=== PATIENT | female | born 1965 | race Caucasian/White ===

== ENCOUNTER 2020-09-28 04:37 | Inpatient (IN) | payer OTHER ==
[~2020-09-28] VITALS: Ht 157.5 cm; Wt 110.5 kg
[~2020-09-28 04:37] MED LIST: GLIM2; HYDACE5 PO; METF850 PO; METO50 PO; Norco 10-325 T1 EACH PO; Norco 5-325 Ta1 EACH PO; OMEP20ER PO; Prinivil10 MG PO; RXHYDACE PO; Robaxin-750750 MG PO
[2020-09-28] MEDS ORDERED: PIOGLITAZONE HC15 MG PO (04:54)
[2020-09-28] MEDS ORDERED: Simvastatin20 MG PO (04:54)
[2020-09-28] MEDS ORDERED: NEURONTIN300 MG PO (04:55)
[2020-09-28 05:12] LABS: Hematocrit 39.7 % (33.0-51.0); Hemoglobin 13.8 g/dL (11.5-16.0); Mean Corpuscular HGB 29.6 pg (26.0-34.0); Mean Corpuscular HGB Conc 34.8 g/dL (31.5-36.5); Mean Corpuscular Volume 85 fL (80-100); Mean Platelet Volume 11.8 fL (9.1-12.4); Platelet Count 149 K/mm3 (150-400); RDW Coefficient Variation 12.2 % (11.7-14.2); Red Blood Cell Count 4.66 M/mm3 (3.80-5.20); White Blood Cell Count 4.75 K/mm3 (4.00-11.30)
[2020-09-28 05:22] LABS: Albumin, Blood 2.6 g/dL (3.4-5.0); Albumin/Globulin Ratio 0.7 (0.8-1.8); Bilirubin, Total 0.7 mg/dL (0.1-1.0); Bun/Creatinine Ratio 17.7 (12.0-20.0); Calcium, Blood 7.9 mg/dL (8.5-10.1); Creatinine, Blood 1.13 mg/dL (0.40-1.00); Globulin, Blood 3.7 g/dL (2.2-4.0); Potassium, Blood 3.3 mmol/L (3.5-5.5); Total Protein, Blood 6.3 g/dL (6.4-8.2)
[2020-09-28 05:57] LABS: BAND PERCENT MAN 2 % (0-8); BASOPHILS PERCENT MAN 0 % (0-2); EOSINOPHILS PERCENT MAN 0 % (0-6); LYMPHOCYTES ABSOLUTE MAN 0.57 K/mm3 (0.84-5.20); LYMPHOCYTES PERCENT MAN 12 % (21-46); MONOCYTES ABSOLUTE MAN 0.19 K/mm3 (0.16-1.47); MONOCYTES PERCENT MAN 4 % (4-13); MYELOCYTE ABSOLUTE MAN 0.04 K/mm3 (0.00-0.00); MYELOCYTE PERCENT MAN 1 % (0-0); NEUTROPHILS ABSOLUTE MAN 3.94 K/mm3 (1.96-9.15); SEG NEUTROPHILS PERCENT MAN 81 % (41-73); TOTAL CELLS COUNTED 100
--- NOTE | 2020-09-28 17:47 | NUR ---
PT QUITE PLEASANT TODAY. STATES FEELS A LITTLE BETTER - BUT NOT MUCH. CONTINUE ON 4L O2. CONTINUES TO HAVE CARCKLES IN S[place] BASES. CONTINUES TO HAVE DIARRHEA THAT PT [facility] HAS HAD FOR SOME TIME AT HOME. NEW IV PLACED TODAY. NO NEW CONCERNS NOTED. BED IN LOW POSITION, CALLLITE IN REACH, CALLS APROP
--- NOTE | 2020-09-29 04:24 | NUR ---
PATIENT IS ALERT AND ORIENTED. PLEASANT AND COOPERATIVE WITH STAFF. VITALS STABLE AND WNL. ON 4L O2 NC; CAN LIKELY WEAN O2 DOWN O2 SATS HAVE BEEN IN THE MID TO HIGH 90s. INDEPENDENT IN ROOM. SLEEPING/RESTING THE MAJORITY OF THE SHIFT WITH MINIMAL TO NO APPETITE. PATIENT CALLS APPROPRIATELY FOR STAFF ASSIST NEEDED.
[2020-09-29 06:18] LABS: Bun/Creatinine Ratio 27.6 (12.0-20.0); Calcium, Blood 8.1 mg/dL (8.5-10.1); Creatinine, Blood 1.16 mg/dL (0.40-1.00); Potassium, Blood 4.3 mmol/L (3.5-5.5)
--- NOTE | 2020-09-29 17:42 | NUR ---
SHIFT SUMMARY PATIENT MEDICATED X1 FOR PAIN AND COUGH. DENIES NAUSEA AND SHORTNESS OF BREATH. MAINTAINING OXYGEN SATURATION ABOVE 92% ON 4L/NC. GIVEN 1 LITER BOLUS THIS AM FOR BP 87/56. BP 110/60 AFTER BOLUS. PATIENT UP SBA TO BSC. EATING AND DRINKING WELL. PLEASANT AND COOPERATIVE WITH CARE.
--- NOTE | 2020-09-30 06:01 | NUR ---
DATA MODELER SUMMARY HAS BEEN RESTING QUIETLY WITH EFW INTERRUPTIONS THIS SHIFT SINCE HS, O2 PER NC AT 4-5L/MIN. MED TELE SINUS RHYTHM AT 98 AND SOME COUGHING. ACCIDENTLY PULLED IV OUT EARLIER WHILE TURNING IN BED. CURRENTLY ATTEMPTING TO PLACE ANOTHER. ISOLATOIN PRECAUTIONS MAINTAINED. CALL LIGHT IN REACH
[2020-09-30 06:54] LABS: Albumin, Blood 2.2 g/dL (3.4-5.0); Anion Gap 4 mmol/L (6-16); Blood Urea Nitrogen 32 mg/dL (8-24); Bun/Creatinine Ratio 31.4 (12.0-20.0); CO2, Blood 26 mmol/L (21-32); Calcium, Blood 7.7 mg/dL (8.5-10.1); Chloride, Blood 103 mmol/L (98-108); Creatinine, Blood 1.02 mg/dL (0.40-1.00); Glomerular Filtration Rate 57 (60-); Glucose, Blood 325 mg/dL (70-99); Phosphorus, Blood 3.3 mg/dL (2.5-4.9); Potassium, Blood 5.7 mmol/L (3.5-5.5); Sodium, Blood 133 mmol/L (136-145)
--- NOTE | 2020-09-30 17:11 | NUR ---
PT AOX4 AND COOOPERATIVE OF CARE. PT CONTINUES TO BE ON 4L O2 AND IS MAINTAINING WELL AT THIS TIME. PT IS INDEPENDENT TO BEDSIDE COMMODE AND CAN CALL APPROPROPRIATELY. PT REPORTED BACK PAIN AND NAUSEA AND WAS TREATED PER EMAR. NO DISTRESS NOTED AT THIS TIME WILL CONTINUE TO MONITOR.
[2020-10-01 06:02] LABS: Albumin, Blood 2.2 g/dL (3.4-5.0); Anion Gap 5 mmol/L (6-16); Blood Urea Nitrogen 26 mg/dL (8-24); Bun/Creatinine Ratio 28.4 (12.0-20.0); CO2, Blood 26 mmol/L (21-32); Calcium, Blood 8.2 mg/dL (8.5-10.1); Chloride, Blood 107 mmol/L (98-108); Creatinine, Blood 0.92 mg/dL (0.40-1.00); Glomerular Filtration Rate >60 (60-); Glucose, Blood 146 mg/dL (70-99); Phosphorus, Blood 2.8 mg/dL (2.5-4.9); Potassium, Blood 3.9 mmol/L (3.5-5.5); Sodium, Blood 138 mmol/L (136-145)
--- NOTE | 2020-10-01 06:05 | NUR ---
DITCH REPAIRER SUMMARY INTERMITENT RESTLESSNESS AT , DEMANDED TO BE ABLE TO "TAKE A SHOWER" AND WOULD NOT WAIT UNTIL AM TO DO SO. ASSISTED TO BATHROOM WITH EXTENSION OF O2 TUBING. AFTER SHOWER, MORE RECEPTIVE TO TREATMENT. HAS BEEN RESTING QUIETLY WITH FEW INTERRUPTIONS SINCE. CALL LIGHT IN REACH. MED [employer] SINUS IN
--- NOTE | 2020-10-01 15:15 | NUR ---
PT WAS CHANGED TO NASAL CANNULA OXIMIZER PULSE OX WAS TRENDING AT 85%. AFTER CHANGING THE PATIENT, PULSE OX IS 93%
--- NOTE | 2020-10-01 18:02 | NUR ---
Listened to patient's lungs and auscultated crackles in the right lower lobes. the patient stated that she is breathing easer since she was switched to the oxymizer. She was also educated about proning and she stated that she has trouble maintaining that position. I told her that we could set a goal to try to prone tomorrow. Additionally, the patient did not feel like eating her meal and she was given and ensure.
--- NOTE | 2020-10-01 18:47 | NUR ---
Shift Summary, The patient is A/OX4 to person, place, time and event. The patient has been cooperative and pleasent to work with. The patient has SOB and pulse ox around 85% trending, she was changes to a nasal oxymizer 7lpm and she states that it has helped and her pulse ox increased to 93%. The patient has been coughing and complained of back pain. She was given robitussin and tylenal per EMR and she stated it helped. The patient has been more tired today becuase she stayed up late the night before and took a shower. She was still independent in the room and able to use the BSC. She was educateded about proning and turning from side to side. She is able to turn from [id number] but she stated she was unable to prone. We set a goal tomorrow to prone for short amounts of time. The patient did not want to eat her dinner becuase she said it was to much. She was offered an ensure and she was able to drink it. She is currently resting in bed watching TV.
[2020-10-02 05:39] LABS: Hematocrit 40.8 % (33.0-51.0); Hemoglobin 13.9 g/dL (11.5-16.0); Mean Corpuscular HGB 29.8 pg (26.0-34.0); Mean Corpuscular HGB Conc 34.1 g/dL (31.5-36.5); Mean Corpuscular Volume 88 fL (80-100); Mean Platelet Volume 11.2 fL (9.1-12.4); Platelet Count 199 K/mm3 (150-400); RDW Coefficient Variation 12.4 % (11.7-14.2); RDW Standard Deviation 39.8 fL (35.1-46.3); Red Blood Cell Count 4.66 M/mm3 (3.80-5.20); White Blood Cell Count 5.69 K/mm3 (4.00-11.30)
--- NOTE | 2020-10-02 06:07 | NUR ---
SHIFT SUMMARY- PT. A&O, ON 7L OXYMIZER. BS LAST NIGHT 437. HOSPITALIST NOTIFED, TX'D PER ORDER. REPEAT BS IMPROVED. NO COMPLAINTS OF PAIN OR DISCOMFORT DURING THE NIGHT. SLEPT T/O THE NIGHT, NO APPARENT DISTRESS NOTED. CALL LIGHT WITHIN REACH AND SIDE RAILS UPX2. WILL CONT TO MONITOR.
[2020-10-02 06:18] LABS: Alanine Aminotransfer (ALT/SGP 51 U/L (12-78); Albumin, Blood 2.2 g/dL (3.4-5.0); Albumin/Globulin Ratio 0.6 (0.8-1.8); Alk Phos 96 U/L (50-136); Anion Gap 6 mmol/L (6-16); Aspartate Aminotrans (AST/SGOT 53 U/L (12-37); Bilirubin, Total 0.6 mg/dL (0.1-1.0); Blood Urea Nitrogen 22 mg/dL (8-24); Bun/Creatinine Ratio 25.9 (12.0-20.0); CO2, Blood 27 mmol/L (21-32); Calcium, Blood 8.7 mg/dL (8.5-10.1); Chloride, Blood 107 mmol/L (98-108); Creatinine, Blood 0.85 mg/dL (0.40-1.00); Globulin, Blood 3.7 g/dL (2.2-4.0); Glomerular Filtration Rate >60 (60-); Glucose, Blood 141 mg/dL (70-99); Magnesium, Blood 1.9 mg/dL (1.6-2.4); Sodium, Blood 140 mmol/L (136-145); Thyroid Stimulating Hormone 0.623 uIU/mL (0.360-4.800); Total Protein, Blood 5.9 g/dL (6.4-8.2)
--- NOTE | 2020-10-02 17:56 | NUR ---
Shift Summary, The patient is A/OX4 to person place, time and event. The patient is cooperative and appropriat. she has SOB and her oxygen delivery devices have been changed multiple times throughout the day. This am her pulse ox was averaging 85% and she was on oxymizer 7LPM, the o2 was increased to 15lpm on nasal oxymizer, she remained around 93% until noon when her pulse ox dropped and maintained at 85%, I consulted RT and they were able to put her on an Airvo 50 and 75% the patient's saturation increased to >90% and she sustained for about 1.5hrs before returning to 85% the Airvo was increased to 50/90% and the patient's pulse ox increased to 90% for about 30 minutes before returing <90%. During this time the patient was proned on her belly and on her left and right side. She did not eat lunch and was given an ensure. the patient is eating. Patient is being transfered to PCU.
[2020-10-02 20:32] LABS: Source, Urine Catheter
[2020-10-02 20:36] LABS: Bilirubin, Urine Neg (Neg); Blood, Urine Neg (Neg); Color, Urine Yellow (P-Yellow); Glucose Qualitative, Urine 4+ (Neg); Ketones, Urine Neg (Neg); Leukocyte Esterase, Urine Neg (Neg); Nitrite, Urine Neg (Neg); Protein, Urine 1+ (Neg); Urobilinogen, Urine 2+ (Normal)
[2020-10-02 20:43] LABS: Appearance, Urine Clear (Clear)
--- NOTE | 2020-10-03 06:46 | NUR ---
SHIFT SUMMARY PT RESTED WELL THROUGH NIGHT. ALERT AND ORIENTED, ABLE TO MAKE NEEDS KNOWN. COOPERATIVE WITH CARE. SATS >90% ON BIPAP. 27/11 100% FIO2. TELE NSR. PAIN X1. NO SKIN ISSUES. MEDINA IN PLACE, DRAINING TO GRAVITY, LAMAR CARE PERFORMED. NO BM. CALL LIGHT WTIHIN REACH, BED IN LOWEST POSITION. WILL CONTINUE TO MONITOR.
--- NOTE | 2020-10-03 08:50 | NUR ---
UNABLE TO FLUSH IV TO LAC. SHELLEY BLUM TO PLACE POWERGLIDE IV ACCESS.
--- NOTE | 2020-10-03 13:57 | NUR ---
PT ABLE TO LAY ON RIGHT SIDE X 2 HOURS WITH AIRVO 60l @ 100%. PT SAT UP IN CHAIR POSITION, SP02 DROPPED TO LOW 80s. PT ABLE TO DRINK AN ENSURE AND EAT A CUP OF PEACHES, PLACED ON BIPAP 60L @ 100% FOR REST BREAK FOR THE AFTERNOON. ENCOURAGING TURNING AND REPOSITIONING Q 2 HRS. CALL LIGHT IN REACH. WILL CONTINUE TO MONITOR. SP02 ON BIPAP >90%.
--- NOTE | 2020-10-03 18:39 | NUR ---
PT TOLERATED AIRVO WELL FOR APROX 6 HRS TODAY, THEN WAS PLACED BACK ON BIPAP AFTER EATING LUNCH THIS AFTERNOON. PT COOPERATIVE WITH TURNING AND CHANGING POSITIONS Q2 HRS. ATTEMPTED TO CONTACT PT'S DTR FOR AN UPDATE, UNABLE TO REACH HER.
--- NOTE | 2020-10-03 20:00 | NUR ---
ASSUMED CARE OF PT AT 1915. REPORT RECEIVED. PT PRESENTS IN BED. ALERT AND ORIENTED. PLEASANT AND COOPERATIVE WITH CARE AND ASSESSMENT. CONTINUES ON BIPAP WHEREAS SHE IS MAINTAINING SATURATIONS > 90 PERCENT. PT DENIES COMPLAINTS OTHER THAN SOME TENDERNESS TO NOSE FROM BIPAP MASK. WILL PROVIDE GEL PADDING FOR COMFORT. WILL REVIEW CHART AND PLAN OF CARE FOR THIS PT.
--- NOTE | 2020-10-04 03:07 | NUR ---
PT CONTINUES ON BIPAP WITH GOOD RESULTS. HAS REMAINED ON 100 PERCENT FIO2. MAINTAINS >90 PERCENT. WITH POSITION CHANGES PT HAS COUGHING EPISODES. PT HAS NO COMPLAINTS OF PAIN OR N/V. WILL CONTINUE TO MONITOR.
[2020-10-04 06:04] LABS: Hematocrit 38.5 % (33.0-51.0); Mean Corpuscular HGB 29.3 pg (26.0-34.0); Mean Corpuscular HGB Conc 33.8 g/dL (31.5-36.5); Mean Corpuscular Volume 87 fL (80-100); Mean Platelet Volume 11.2 fL (9.1-12.4); Platelet Count 285 K/mm3 (150-400); RDW Coefficient Variation 12.3 % (11.7-14.2); RDW Standard Deviation 39.5 fL (35.1-46.3); Red Blood Cell Count 4.43 M/mm3 (3.80-5.20)
[2020-10-04 06:29] LABS: Albumin/Globulin Ratio 0.5 (0.8-1.8); Bilirubin, Total 0.6 mg/dL (0.1-1.0); Bun/Creatinine Ratio 29.3 (12.0-20.0); C-REACTIVE PROTEIN, EXT RANGE 14.5 mg/dL (0.000-0.300); Calcium, Blood 8.8 mg/dL (8.5-10.1); Creatinine, Blood 0.99 mg/dL (0.40-1.00); Globulin, Blood 4.2 g/dL (2.2-4.0); Potassium, Blood 3.9 mmol/L (3.5-5.5); Total Protein, Blood 6.2 g/dL (6.4-8.2)
--- NOTE | 2020-10-04 08:00 | NUR ---
Receive report from Ramy BLUM.ateint resting sitting up in bed. She is on high flow O2 60 100% and sats low 90%'s. She has 20ga Powerglide SL and flushed. She has 16Fr Cortez draining to gravity light tio colored urine. She is slightly hypotensive systolics in the 90's. SCD's in place. She is alert and oriented and is able to communicate his nees. SCD's in place.
--- NOTE | 2020-10-04 10:00 | NUR ---
Patient has poor apitite and stated that food is too heavy for her stomach and prefers Ensures and jello. VSS , See EMR. Tolerated PO med with sips of water. Remains 0n 60L 100% with sats in the high 80- low 90's.
--- NOTE | 2020-10-04 12:00 | NUR ---
Her sats in the high 80's and had some concerns and talked with Dr Mayer and am consulting Dr Scanlon. Remains 60L 100% sats high 80's.CBG's increased and gave semglee.
--- NOTE | 2020-10-04 15:00 | NUR ---
No significant changes with patient.
--- NOTE | 2020-10-04 17:30 | NUR ---
She has been try to more active to prone or lay on her side and sats low 90%'s. Continues to tolerate PO meds. She remaisn on high Flow 60L 100% and sats 94%. Updated family.
--- NOTE | 2020-10-04 20:00 | NUR ---
ASSUMED CARE OF PT AT 1915. REPORT RECEIVED. PT PRESENTS IN BED. BIPAP IN PLACE. PT COMPLIANT WITH WEARING MASK. DISCUSSED WITH PT HER CURRENT ILLNESS OF COVID. DISCUSSED ADVANTAGE OF PRONING. PT AGREES TO PLAN OF PRONING THIS LATER EVENING. WILL REVIEW CHART AND PLAN OF CARE FOR THIS PT.
--- NOTE | 2020-10-04 22:11 | NUR ---
PT'S DAUGHTER CALLS THIS EVENING FOR PT UPDATE. THIS DONE. DISCUSSED PRONING OF PATIENT FOR NIGHT.
[2020-10-05 06:14] LABS: Hematocrit 41.3 % (33.0-51.0); Hemoglobin 14.3 g/dL (11.5-16.0); Mean Corpuscular HGB 29.5 pg (26.0-34.0); Mean Corpuscular HGB Conc 34.6 g/dL (31.5-36.5); Mean Corpuscular Volume 85 fL (80-100); Mean Platelet Volume 10.8 fL (9.1-12.4); Platelet Count 348 K/mm3 (150-400); RDW Coefficient Variation 12.1 % (11.7-14.2); RDW Standard Deviation 37.6 fL (35.1-46.3); Red Blood Cell Count 4.85 M/mm3 (3.80-5.20); White Blood Cell Count 5.33 K/mm3 (4.00-11.30)
--- NOTE | 2020-10-05 06:30 | NUR ---
PT HAS MAINTAINED ON BIPAP THROUGHOUT THE NIGHT. HAS MOVED HERSELF INTO PARTIAL PRONE POSITION. HAVE DECREASED FIO2 TO 95 PERCENT FROM 100. PT NOW AT 87 PERCENT SATURATIONS. WILL NEED TO INCREASE BACK TO 100 PERCENT FIO2. PT HAS DENIED COMPLAINTS THROUGH THE NIGHT. HAS BEEN ABLE TO REST SOME. WILL CONTINUE TO MONTIOR PT, AND WILL REPORT OFF TO ONCOMING RN.
[2020-10-05 07:02] LABS: Alanine Aminotransfer (ALT/SGP 43 U/L (12-78); Albumin, Blood 2.1 g/dL (3.4-5.0); Albumin/Globulin Ratio 0.5 (0.8-1.8); Alk Phos 101 U/L (50-136); Anion Gap 5 mmol/L (6-16); Aspartate Aminotrans (AST/SGOT 42 U/L (12-37); Bilirubin, Total 0.6 mg/dL (0.1-1.0); Blood Urea Nitrogen 21 mg/dL (8-24); Bun/Creatinine Ratio 26.6 (12.0-20.0); CO2, Blood 32 mmol/L (21-32); Calcium, Blood 8.8 mg/dL (8.5-10.1); Chloride, Blood 100 mmol/L (98-108); Creatinine, Blood 0.79 mg/dL (0.40-1.00); Globulin, Blood 4.6 g/dL (2.2-4.0); Glomerular Filtration Rate >60 (60-); Glucose, Blood 117 mg/dL (70-99); Potassium, Blood 4.3 mmol/L (3.5-5.5); Sodium, Blood 137 mmol/L (136-145); Total Protein, Blood 6.7 g/dL (6.4-8.2)
--- NOTE | 2020-10-05 08:00 | NUR ---
SBAR FROM DENISSE RN FOR TEAM ASSIST. PT RESTING IN ROOM, MINIMAL/NO AIRLEAK W/ BIPAP. PT STATES TOLERATING BIPAP. PT STATES SHE FEELS SAME YESTERDAY. NO DISTRESS NOTED. PLANS ON DRINKING ENSURE FOR BREAKFAST. VSS, AFEBRILE. BIPAP SETTINGS 60L 95FIO2 W/ SATS 95%. EMERGENCY EQUIPMENT AT BEDSIDE AND FUNCTIONAL. BED IN LOW/LOCKED POSITION, CALL LIGHT IN REACH. WATER PROVIDED FOR PT.
--- NOTE | 2020-10-05 10:48 | NUR ---
O2 SATS 85% ON BIPAP 27/11 95%. INCREASED FI02 TO 100. O2 SATS NOW 87%. GOAL OF 86-87% PER MD.
--- NOTE | 2020-10-05 11:58 | NUR ---
PT REQUESTED TO EAT LUNCH USING HIGH FLOW. TRANSITIONED PT TO HIGH FLOW. SITTING UP W/ LUNCH, PT STATES TOLERATING FAIRLY. SPO2 80-85% DURING MEAL.
--- NOTE | 2020-10-05 14:00 | NUR ---
Patient rested for several hours on BIPAP and the bacl to high flow 60L 100% while awake trying to eat, and continues currently, sats 88-92. She trys to do some shifting in bed for repositioning not to desats. Dr Faulkner by and evaluated patient.
--- NOTE | 2020-10-05 17:30 | NUR ---
Patient is awake on high flow 60l 100% and awaiting dinner to go back on BIPAP. Tolerasting well and stated feeling better than yesterday. VSS, See EMR. Continues to tolerate PO meds with drinks of water.
--- NOTE | 2020-10-05 20:00 | NUR ---
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 PT EATING SNACK, UNDERSTANDS IMPORTANCE OF PRONING. CO HEADACHE, WILL GIVE PRN PAIN MED. CAROL DOUGLAS VERONICA URINE.
--- NOTE | 2020-10-06 01:00 | NUR ---
AWAKENED FOR ASSESS & GABAPENTIN WHICH WAS DOSED LATE. STATES THAT NORCO NOT REALLY EFFECTIVE FOR HEADACHE. 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 CHANGED TO BIPAP W GEL PAD FOR NOSE.
--- NOTE | 2020-10-06 04:00 | NUR ---
RT CHANGED BIPAP TO / 100%, CONT ALERT, PT HAS BEEN POSITIONING HIGH ON SIDE. CONT TO MONITOR CLOSELY. CALL LIGHT IN REACH. PT SL EMOTIONAL UNDERSTANDING POSSIBILITY OF INTUBATION.
[2020-10-06 05:00] LABS: Hematocrit 40.9 % (33.0-51.0); Mean Corpuscular HGB 29.8 pg (26.0-34.0); Mean Corpuscular HGB Conc 34.2 g/dL (31.5-36.5); Mean Corpuscular Volume 87 fL (80-100); Mean Platelet Volume 10.4 fL (9.1-12.4); Platelet Count 357 K/mm3 (150-400); RDW Coefficient Variation 12.1 % (11.7-14.2); White Blood Cell Count 6.44 K/mm3 (4.00-11.30)
[2020-10-06 05:24] LABS: Alanine Aminotransfer (ALT/SGP 46 U/L (12-78); Albumin/Globulin Ratio 0.5 (0.8-1.8); Alk Phos 116 U/L (50-136); Anion Gap 5 mmol/L (6-16); Aspartate Aminotrans (AST/SGOT 58 U/L (12-37); Bilirubin, Total 0.7 mg/dL (0.1-1.0); Blood Urea Nitrogen 22 mg/dL (8-24); Bun/Creatinine Ratio 23.4 (12.0-20.0); CO2, Blood 33 mmol/L (21-32); Calcium, Blood 8.9 mg/dL (8.5-10.1); Chloride, Blood 97 mmol/L (98-108); Creatinine, Blood 0.94 mg/dL (0.40-1.00); Globulin, Blood 4.4 g/dL (2.2-4.0); Glomerular Filtration Rate >60 (60-); Glucose, Blood 107 mg/dL (70-99); Potassium, Blood 4.5 mmol/L (3.5-5.5); Sodium, Blood 135 mmol/L (136-145); Total Protein, Blood 6.4 g/dL (6.4-8.2)
--- NOTE | 2020-10-06 10:24 | NUR ---
PATIENT TRANSFER PATIENT ALERT AND ORIENTATED X4. PATIENT IS ON BIPAP 16/ 100%. PATIENT CAP BLOOD GLUCOSE WAS 61 THIS MORNING. PATIENT TAKEN OFF BIPAP AND ON HIGH FLOW AT 60L 100%, TO HAVE SOME ORANGE JUICE TO INCREASE BLOOD SUGAR. PATIENT WAS NOT TOLERATING THE HIGH FLOW, O2 SATS DROPPED LOW 65. PATIENT REPOSITIONED TO PRONE POSITION AND PLACED BACK ON BIPAP AT 60L 100% AND PATIENT SITTING AT SPO2 83%. PATIENT PER MD ORDER RECEIVED HALF AN AMP OF DEXTROSE. PATIENT BLOOD GLUCOSE 121. PATIENT CONTINUED TO SIT AROUND SPO2 85%. PATIENT TRANSFERED TO ICU PER INTENSITIVES. PATIENT TRANSFERD BY BED WITH THIS RN, LICENSING REPRESENTATIVE, AND RT. PATIENT TRANSFERED TO ICU AND PREPERATION FOR INTUBATION. THIS RN NOTIFED SPOUSE WITH AN UPDATE ON PATIENT CONDITION AND ROOM CHANGE.
--- NOTE | 2020-10-06 12:27 | NUR ---
PT TRANSFERED FROM PCU TO ICU AT 1000. PT AWAKE ON BIPAP, SATS LOW 80'S. RT, SEVERAL RN'S AND DR HYLTON AT BEDSIDE. INTUBATION PLANNED. NS 1L BOLUS STARTED PRIOR TO INTUBATION FOR HYPOTENSION. LEVOPHED ORDERED, STARTED AT AT 5MCG AT 1017 AND QUICKLY PLACED ON STANDBY POST INTUBATION, PT WAS HYPERTENSIVE FOR A SHORT PERIOD AFTER INTUBATION PT WAS NOT FULLY SEDATED. PT INTUBATED AT 1017, 7.5 TUBE, 23 AT GUMS. PT REQUIRED TO BE PARALYZED AFTER INTUBATION. SUCCS GIVEN X [address] HYLTON. NIMBEX AT 2MCG STARTED AT 1032. PROPOFOL PLACED ON STANDBY FOR A SHORT PERIOD AFTER INTUBATION PROPOFOL AND NIMBEX ARE NOT COMPATIBLE AND PT HAD ONLY ONE LINE. DR HYLTON PLACED A CL TO PT'S R IJ, ETT AND CL CONFIRMED VIA CHEST XRAY. PROPOFOL THEN STARTED AT 50MCG. BIS READING 50'S. TOF 4/4 AT 10MV. PT IS SIGNIFICANTLY PARALYZED, BREATHING W VENT. PT PRONED AFTER CHEST XRAY PER DR HYLTON. DR HYLTON AT BEDSIDE POST INTUBATION SATS INITIALLY WERE SLOW TO RAISE FROM 79% TO 89%. VENT SETTINGS VC 22/380/18/100%. RECTAL TUBE PLACED FOR LIQUID STOOL. OG PLACED TO LIS PT HAD SMALL AMT OF BROWN EMESIS POST INTUBATION. LEVOPHED RESTARTED AT 5MCG WHEN PT WAS ADEQUATELY SEDATED AND IS NOW AT 3MCG. NS IS NOW RUNNING AT 100CC/HR. DR HYLTON CALLED PT'S AND UPDATED HIM. ATIVAN AND FENT GIVEN TO PT WHILE PROPOFOL WAS ON STANDY PER DR HYLTON, A TOTAL OF ATIVAN 4MG AND FENT 100MCG.
[2020-10-06 12:42] LABS: PCO2 Arterial 49.8 mmHg (35-45); PO2 Arterial 51.9 mmHg (80-100); pH Blood Arterial 7.39 (7.35-7.45)
--- NOTE | 2020-10-06 13:02 | NUR ---
PT HAS HAD C/O NAUSEA, NO EMESIS TODAY. ZOFRAN, PHERGAN, AND REGLAN GIVEN. NG ORDERED TO BE PLACED TO LIS BUT PT HAS AIRVO IN. THIS DISCUSSED W DR JAIN. WILL HOLD NG FOR NOW AND MONITOR. PT HAS ERYTHEMA AND WARMTH TO BLE, DOPPLER ORDERED.
--- NOTE | 2020-10-06 14:04 | NUR ---
FENTANYL 50MCG GIVEN FOR BIS HIGH 50'S. BP STABLE, LEVOPHED DECREASED TO 2MCG. VHP TUBE FEEDING STARTED AT 25CC/HR; GOAL RATE. PROPOFOL AT 50MCG, NIMBEX AT 2MCG. PT ADEQUATELY PARALYZED, SATS 92%. TOF 0/4.
--- NOTE | 2020-10-06 16:46 | NUR ---
BS 306, TREATED W 12UNITS HUMALOG. BIS 70'S AFTER REPOSITIONING PT'S HEAD AND ARMS, PT REMAINS PRONE. PROPOFOL INCREASED TO 60MCG, FENT 50MCG GIVEN. TOF 0/4. SATS 95% PT MILDLY HTN AFTER TURN, LEVOPHED PLACED ON STANDBY THEN RESTRATED AFTER PROPOFOL INCREASED AND FENT GIVEN
--- NOTE | 2020-10-06 18:56 | NUR ---
DR HYLTON IN TO SEE PT. RATE CHANGED TO 24, TV 300. SATS 98%. NO OTHER CHANGES. PT TO REMAINED PRONE T/O THE NIGHT PER DR HYLTON
[2020-10-07 03:58] LABS: BASOPHILS ABSOLUTE AUTO 0.05 K/mm3 (0.00-0.23); BASOPHILS PERCENT AUTO 1 % (0-2); EOSINOPHILS ABSOLUTE AUTO 0.12 K/mm3 (0.00-0.68); EOSINOPHILS PERCENT AUTO 1 % (0-6); Hematocrit 37.4 % (33.0-51.0); Hemoglobin 12.7 g/dL (11.5-16.0); IMMATURE GRAN ABSOLUTE AUTO 0.36 K/mm3 (0.00-0.10); IMMATURE GRAN PERCENT AUTO 4 % (0-1); LYMPHOCYTES ABSOLUTE AUTO 0.49 K/mm3 (0.84-5.20); LYMPHOCYTES PERCENT AUTO 5 % (21-46); MONOCYTES ABSOLUTE AUTO 0.29 K/mm3 (0.16-1.47); MONOCYTES PERCENT AUTO 3 % (4-13); Mean Corpuscular HGB 30.2 pg (26.0-34.0); Mean Corpuscular Volume 89 fL (80-100); Mean Platelet Volume 10.2 fL (9.1-12.4); NEUTROPHILS ABSOLUTE AUTO 9.04 K/mm3 (1.96-9.15); NEUTROPHILS PERCENT AUTO 87 % (41-73); Platelet Count 318 K/mm3 (150-400); RDW Coefficient Variation 12.4 % (11.7-14.2); White Blood Cell Count 10.35 K/mm3 (4.00-11.30)
[2020-10-07 04:06] LABS: Base Excess Venous 5.2 mmol/L; Bicarbonate Venous 27.4 mmol/L (24.0-30.0); PCO2 Venous 60.5 mmHg (38-42); PO2 Venous 65.4 mmHg (38-42); pH Blood Venous 7.32 (7.34-7.37)
[2020-10-07 04:15] LABS: Anion Gap 5 mmol/L (6-16); Blood Urea Nitrogen 35 mg/dL (8-24); Bun/Creatinine Ratio 45.5 (12.0-20.0); CO2, Blood 30 mmol/L (21-32); Calcium, Blood 8.3 mg/dL (8.5-10.1); Chloride, Blood 101 mmol/L (98-108); Creatinine, Blood 0.77 mg/dL (0.40-1.00); Glomerular Filtration Rate >60 (60-); Glucose, Blood 362 mg/dL (70-99); Magnesium, Blood 2.1 mg/dL (1.6-2.4); Phosphorus, Blood 3.7 mg/dL (2.5-4.9); Potassium, Blood 4.5 mmol/L (3.5-5.5); Sodium, Blood 136 mmol/L (136-145)
--- NOTE | 2020-10-07 06:19 | NUR ---
SHIFT SUMMARY PATIENT HAS SLEPT WELL THRU NIGHT. HAS TOLERATED TURNING THRU NIGHT, NO EPISODES OF DESATURATION. MAINTAINED DRIPS THEY WERE, NIMBEX @ 2, PROPOFOL @ 60, N.S. @ 100, WAS ABLE TO TURN OFF LEVOPHED EARLIER IN SHIFT. TUBE FEED RESIDUALS WERE MINIMAL, 0-10. MAINTAINED BIS ~ 50, TRAIN OF 4 = 1/4. ASSESSMENT IS CHARTED. VSS. WILL CONTINUE TO MONITOR.
--- NOTE | 2020-10-07 08:31 | NUR ---
AM NOTE... ASSUMED CARE OF PT AT 0700, PT IS INTUBATED, SEDATED AND PARALYZED ON NIMBEX AT 2MCG, PROPOFOL AT 65MCG WITH VENT SETTINGS AT AC/VC: 24/300/18/80% WITH O2 SATS AT 90-92%. L/S CLEAR IN THE UPPER LOBES COARSE IN THE MID AND DIM IN THE BASES. PT'S BP STABLE, HR IN THE 100'S-120'S SINUS TACH, PT HAS TRACE EDEMA NOTED TO BLE. BT PRESENT AND HYPOACTIVE, PT IS PRONED AT THIS TIME. PT'S MEDINA IS PATENT AND DRAINING TO GRAVITY, A RECTAL TUBE IS PRESENT AND DRAINING BROWN LIQUID STOOLS TO GRAVITY. PT'S TOF IS 1/4 ON A SETTING OF 10. BIS IS 40'S-50'S. AT 0800 THE PT'S O2 SATS STARTED TO DROP FROM THE 90-92% TO 85-87%, RT WAS CALLED AND THE FIO2 WAS INCREASED FROM 80% TO 85%, THIS IMPROVED THE O2 SATS FOR APROX 10 MINS WHEN THEY DROPPED AGAIN BACK DOWN TO 85-87%, THE FIO2 WAS INCREASED AGAIN TO 90% THIS IMPROVED THE PT'S O2 SATS TO 89%. WILL CONTINUE TO MONITOR.
--- NOTE | 2020-10-07 14:29 | NUR ---
Pt. lying in bed,Covid pt.Prayed for her standing by the door of her room .
--- NOTE | 2020-10-07 18:18 | NUR ---
SHIFT SUMMARY... NO ACUTE NEGATIVE CHANGES NOTED THIS SHIFT. PT'S VS HAVE BEEN STABLE, PT'S VENT SETTINGS HAVE IMPROVED THE PT IS CURRENTLY AT AC/VC:24/300/16/90% WITH O2 SATS AT 96%. PT HAS NOT BEEN ON LEVOPHED AT ALL THIS SHIFT. PT CONTINUES TO BE PRONED PER 'S REQUEST AND WILL STAY PRONED UNTIL TOMORROW AM. PT'S MEDINA IS PATENT AND DRAINING DARK YELLOW/GREEN URINE TO GRAVITY. PT'S RECTAL TUBE HAS NOT HAD ANY OUTPUT THIS SHIFT. PT HAD A BLOODY NOSE THIS SHIFT THIS WAS NOTED WHEN THE PT'S HEAD WAS TURNED FROM THE RIGHT TO THE LEFT. THE PT'S FACE WAS CLEANED AND SOME 2x2s WERE PUT BETWEEN THE PT'S NOSE AND THE ET TUBE SECURMENT DEVICE TO HELP PROTECT FROM SKIN BREAKDOWN. PT'S FAMILY WAS CALLED AND UPDATED ON THE PT'S CURRENT CONDITON AND PLAN OF CARE. WILL CONTINUE TO MONITOR UNTIL REPORT IS GIVEN TO ON COMING RN.
[2020-10-08 03:45] LABS: BASOPHILS ABSOLUTE AUTO 0.05 K/mm3 (0.00-0.23); BASOPHILS PERCENT AUTO 1 % (0-2); EOSINOPHILS ABSOLUTE AUTO 0.15 K/mm3 (0.00-0.68); EOSINOPHILS PERCENT AUTO 2 % (0-6); Hematocrit 35.1 % (33.0-51.0); Hemoglobin 11.6 g/dL (11.5-16.0); IMMATURE GRAN ABSOLUTE AUTO 0.51 K/mm3 (0.00-0.10); IMMATURE GRAN PERCENT AUTO 6 % (0-1); LYMPHOCYTES ABSOLUTE AUTO 0.63 K/mm3 (0.84-5.20); LYMPHOCYTES PERCENT AUTO 7 % (21-46); MONOCYTES ABSOLUTE AUTO 0.32 K/mm3 (0.16-1.47); MONOCYTES PERCENT AUTO 4 % (4-13); Mean Corpuscular HGB 30.3 pg (26.0-34.0); Mean Corpuscular Volume 92 fL (80-100); Mean Platelet Volume 10.2 fL (9.1-12.4); NEUTROPHILS ABSOLUTE AUTO 7.34 K/mm3 (1.96-9.15); NEUTROPHILS PERCENT AUTO 81 % (41-73); Platelet Count 288 K/mm3 (150-400); RDW Coefficient Variation 12.5 % (11.7-14.2); Red Blood Cell Count 3.83 M/mm3 (3.80-5.20)
[2020-10-08 04:01] LABS: Anion Gap 1 mmol/L (6-16); Blood Urea Nitrogen 29 mg/dL (8-24); Bun/Creatinine Ratio 41.6 (12.0-20.0); CO2, Blood 33 mmol/L (21-32); Calcium, Blood 7.7 mg/dL (8.5-10.1); Chloride, Blood 104 mmol/L (98-108); Glomerular Filtration Rate >60 (60-); Glucose, Blood 246 mg/dL (70-99); Phosphorus, Blood 1.9 mg/dL (2.5-4.9); Potassium, Blood 4.6 mmol/L (3.5-5.5); Sodium, Blood 138 mmol/L (136-145)
[2020-10-08 04:02] LABS: BAND PERCENT MAN 1 % (0-8); BASOPHILS PERCENT MAN 0 % (0-2); EOSINOPHILS ABSOLUTE MAN 0.18 K/mm3 (0.00-0.68); EOSINOPHILS PERCENT MAN 2 % (0-6); LYMPHOCYTES ABSOLUTE MAN 0.36 K/mm3 (0.84-5.20); LYMPHOCYTES PERCENT MAN 4 % (21-46); MONOCYTES ABSOLUTE MAN 0.27 K/mm3 (0.16-1.47); MONOCYTES PERCENT MAN 3 % (4-13); NEUTROPHILS ABSOLUTE MAN 8.19 K/mm3 (1.96-9.15); SEG NEUTROPHILS PERCENT MAN 90 % (41-73); TOTAL CELLS COUNTED 100
--- NOTE | 2020-10-08 06:35 | NUR ---
SHIFT SUMMARY PATIENT HAS DONE WELL THRU NIGHT. DID HAVE TO INCREASE FIO2 TO 100% WITH FIRST TURN, RECOVERED SLOWLY, WOULD RECOMMEND MEDICATING WITH ATIVAN PRIOR TO TURNING. TOLERATING VENTILATION, TUBE FEEDS AT THIS TIME, RESIDUALS REMAIN MINIMAL. ASSESSMENT IS CHARTED. VSS. WILL CONTINUE TO MONITOR.
--- NOTE | 2020-10-08 08:20 | NUR ---
ASSESSMENT- PT SEDATED WITH PROPOFOL GTT AT 70 MCG/KG/MIN. BIS 47-50. PARALYZED WITH NIMBEX INFUSION 1.5 MCGKG/MIN. ORALLY INTUBATED, TUBE SECURE. TOLERATING VENT SETTINGS, OXYGEN SATURATIONS 90%, 100% FIO2 HIGH PEEP 16. COPIOUS BLOODY ORAL SECRETIONS, SCANT ETT SECRETIONS. LUNGS WITH COARSE RHONCI THROUGHOUT. SINUS. AFEBRILE, BP STABLE. RIJ INTACT WITH NS TKO AND SODIUM PHOS REPLACEMENT INFUSING. LEFT ARM POWER GLIDE INTACT. TF VIA OGT VIAL HP AT 25 CC/HR. UO VIA MEDINA. RECTAL TUBE WITH SMALL AMOUNT LIQUID STOOL. REPOSITIONED PRONE.
--- NOTE | 2020-10-08 18:46 | NUR ---
PT WITH STABLE VS. OFF NIMBEX, REMAINS SEDATED WTIH PROPOFOL AT 70 MCG/KG/MIN, TOLERATING VENT SETTINGS. SR. BP STABLE. UPDATE TO PT'S DAUGHTER OF PHONE, QUESTIONS ANSWERED. FACIAL SWELLING DECREASED THROUGHOUT DAY. URINE OUTPUT GOOD. TOLERATING TUBE FEEDING. SCANT AMOUNT VIA RECTAL TUBE. LINES INTACT.
[2020-10-09 05:00] LABS: BASOPHILS ABSOLUTE AUTO 0.11 K/mm3 (0.00-0.23); BASOPHILS PERCENT AUTO 1 % (0-2); EOSINOPHILS ABSOLUTE AUTO 0.08 K/mm3 (0.00-0.68); EOSINOPHILS PERCENT AUTO 1 % (0-6); Hematocrit 39.4 % (33.0-51.0); Hemoglobin 12.6 g/dL (11.5-16.0); IMMATURE GRAN ABSOLUTE AUTO 0.74 K/mm3 (0.00-0.10); IMMATURE GRAN PERCENT AUTO 4 % (0-1); LYMPHOCYTES ABSOLUTE AUTO 0.84 K/mm3 (0.84-5.20); LYMPHOCYTES PERCENT AUTO 5 % (21-46); MONOCYTES ABSOLUTE AUTO 0.89 K/mm3 (0.16-1.47); MONOCYTES PERCENT AUTO 5 % (4-13); Mean Corpuscular HGB 29.9 pg (26.0-34.0); Mean Corpuscular Volume 93 fL (80-100); Mean Platelet Volume 10.9 fL (9.1-12.4); NEUTROPHILS ABSOLUTE AUTO 14.43 K/mm3 (1.96-9.15); NEUTROPHILS PERCENT AUTO 85 % (41-73); Platelet Count 345 K/mm3 (150-400); RDW Coefficient Variation 12.7 % (11.7-14.2); RDW Standard Deviation 43.6 fL (35.1-46.3); Red Blood Cell Count 4.22 M/mm3 (3.80-5.20); White Blood Cell Count 17.09 K/mm3 (4.00-11.30)
[2020-10-09 05:37] LABS: Anion Gap 2 mmol/L (6-16); Blood Urea Nitrogen 28 mg/dL (8-24); Bun/Creatinine Ratio 40.7 (12.0-20.0); CO2, Blood 33 mmol/L (21-32); Calcium, Blood 8.7 mg/dL (8.5-10.1); Chloride, Blood 102 mmol/L (98-108); Creatinine, Blood 0.69 mg/dL (0.40-1.00); Glomerular Filtration Rate >60 (60-); Glucose, Blood 244 mg/dL (70-99); Phosphorus, Blood 3.6 mg/dL (2.5-4.9); Sodium, Blood 137 mmol/L (136-145)
--- NOTE | 2020-10-09 06:07 | NUR ---
END OF SHIFT SUMMARY: PATIENT PRONED AT 1999. HELD O2 SATS AT 83% FOR AN EXTENDED PERIOD OF TIME. 2MG ATIVAN GIVEN WITH NO IMPROVEMENT. NIMBEX RESTARTED AND SLOWLY STARTED WORKING. SHE HAS REMAINED INTUBATED/SEDATED. PEEP WAS INCREASED TO [address] JAIN SATS WERE NOT IMRPOVING INITIALLY. FIO2 WAS ALSO INCREASED TO 100%. BP HAS BEEN HIGH AT TIMES, BUT RESPONDS WELL WITH 2MG ATIVAN. SHE HAS REMAINED IN ST IN THE 120S. ADEQUATE URINE OUTPUT. NIMBEX AT 2, PROPOFOL AT 80
--- NOTE | 2020-10-09 08:11 | NUR ---
ASSESSMENT- PT SEDATED WITH PROPOFOL AT 80 MCG/KG/MIN, DECREASED TO 70 MCG/KG/MIN. SINUS TACH 100'S, BP STABLE. BIS LOW 40'S. PARALYZED WITH NIMBEX INFUSION DECREASED FROM 2 TO 1.5 MCG/KG/MIN, TOF 0/0 ORALLY INTUBATED, REVIEWED TUBE PLACEMENT WITH RESPIRATORY THERAPIST. TOLERATING VENT SETTINGS. ABDOMEN SOFT, LARGE. TUBE FEEDING GOAL RATE 15 CC/HR. NS AT 100 CC/HR. RIJ CENTRAL LINE DI. LEFT ARM POWER GLIDE DI. POSITIONED PRONE. UO VIA MEDINA. RECTAL TUBE INTACT.
--- NOTE | 2020-10-09 08:34 | NUR ---
PT TO SUPINE WITH MULTIPLE STAFF TO MANAGE AIRWAY.
--- NOTE | 2020-10-09 09:45 | NUR ---
PT WITH DECREASED SATURATIONS TO 82% AFTER SUPINE POSITION. RX WITH FENTANYL, REPOSITIONED IN REVERSE TRENDELENBERG, DR. JAIN AT BEDSIDE. PEEP INCREASED TO 18 WITH IMPROVEMENT OF SATURATIONS TO 88-90%. XRAY ORDERED.
--- NOTE | 2020-10-09 10:38 | NUR ---
RECTAL TUBE REMOVED AT 0830.
--- NOTE | 2020-10-09 11:26 | NUR ---
ETT ADJUSTED TO [address] JAIN AND RESPIRATORY THERAPIST. LUNGS CLEAR, DIMINISHED BASES LEFT MORE THAN RIGHT. TOLERATING VENT SETTINGS. SEDATE, NO S/S PAIN.
--- NOTE | 2020-10-09 18:05 | NUR ---
PT STABLE WITH VENT SETTINGS, DID DESAT WHEN POSITIONED TO RIGHT SIDE, IMPROVED WITH REPOSITIONING TO SUPINE. SR. BP STABLE. PROPOFOL AT 70 MCG/KG/MIN. FENTANYL GTT STARTED ADJUNCT FOR SEDATION AT 50 MCG/HR. UPDATE WITH DR. JAIN-MIN PRONE POSITION TONIGHT D/T FACIAL EDEMA. RIJ CENTRAL LINE DI, POWER GLIDE DI. TOLERATING TUBE FEEDS. UO VIA MEDINA. NO BM. CONTINUE TO MONITOR
[2020-10-10 03:53] LABS: BASOPHILS ABSOLUTE AUTO 0.08 K/mm3 (0.00-0.23); BASOPHILS PERCENT AUTO 1 % (0-2); EOSINOPHILS PERCENT AUTO 1 % (0-6); Hematocrit 36.4 % (33.0-51.0); Hemoglobin 11.6 g/dL (11.5-16.0); IMMATURE GRAN ABSOLUTE AUTO 0.59 K/mm3 (0.00-0.10); IMMATURE GRAN PERCENT AUTO 5 % (0-1); LYMPHOCYTES ABSOLUTE AUTO 0.82 K/mm3 (0.84-5.20); LYMPHOCYTES PERCENT AUTO 7 % (21-46); MONOCYTES PERCENT AUTO 6 % (4-13); Mean Corpuscular HGB 29.9 pg (26.0-34.0); Mean Corpuscular HGB Conc 31.9 g/dL (31.5-36.5); Mean Corpuscular Volume 94 fL (80-100); Mean Platelet Volume 10.2 fL (9.1-12.4); NEUTROPHILS ABSOLUTE AUTO 10.18 K/mm3 (1.96-9.15); NEUTROPHILS PERCENT AUTO 82 % (41-73); Platelet Count 256 K/mm3 (150-400); RDW Coefficient Variation 12.9 % (11.7-14.2); RDW Standard Deviation 44.7 fL (35.1-46.3); Red Blood Cell Count 3.88 M/mm3 (3.80-5.20); White Blood Cell Count 12.47 K/mm3 (4.00-11.30)
[2020-10-10 04:10] LABS: Anion Gap 0 mmol/L (6-16); Blood Urea Nitrogen 37 mg/dL (8-24); Bun/Creatinine Ratio 57.6 (12.0-20.0); CO2, Blood 32 mmol/L (21-32); Calcium, Blood 8.9 mg/dL (8.5-10.1); Chloride, Blood 106 mmol/L (98-108); Creatinine, Blood 0.64 mg/dL (0.40-1.00); Glomerular Filtration Rate >60 (60-); Glucose, Blood 257 mg/dL (70-99); Potassium, Blood 4.9 mmol/L (3.5-5.5); Sodium, Blood 138 mmol/L (136-145)
--- NOTE | 2020-10-10 05:50 | NUR ---
Sedated under Propofol and paralyzed under Nimbex. Hemodynamic stable. Pulse in sinus tachycardia rhythm, around 105 bpm. Received orders for Labetalol PRN from Dr. Scanlon, for systolic BP greater than 160. Urine via fuentes catheter, normal output. No bowel movement during the shift. Respiratory unstable. Pulse oximetry droped to around 82% at the lowest during the night. Due to that, a decision was made by Dr. Scanlon to prone the patient. Proned at 1:45AM. Small amount of thick craen secretions from ETT. Her daughter called and was updated on her well being.
--- NOTE | 2020-10-10 09:53 | NUR ---
[place] of Care: Care assumed at 0700hr. Patient intubated, sedated, and on Nimbex gtt at 1mcg/kg/min. TOF 4/4 but respiratory rate at back rate of 26, tolerating vent without difficulty. Propofol gtt at 70mcg/kg/min and fentanyl gtt at 50mcg/hr, BIS monitor in the 30's-40's. Patient currently in prone position, facing to the lt. VSS, HR shows sinus rhythm in the low 100's, BP stable. Cortez cath patent and intact, draining dark yellow, clear urine. Central line to rt IJ, patent and intact, infusing without difficulty. Patient spO2 decreased to 86-88% at approx 0930hr. Patient then turned to facing rt side, but spO2 remains 85-86%, RT Urvashi in room, and made adjustments to flow, unable to increase PEEP r/t peak pressures. Will consult Dr. Murcia r/t decreased spO2, currently holding at 86%.
[2020-10-10 11:27] LABS: Vancomycin, Trough 17.6 ug/mL (5.0-10.0)
--- NOTE | 2020-10-10 18:45 | NUR ---
Shift Summary: No significant changes throughout shift. SpO2 increased from 88-90 this morning to 94-96%. HR and BP stable. Patient also continues to tolerate turning of head/shoulders. Discussed plan with Dr. Murcia, and Dr. Colon. Plan to leave patient in prone position until tomorrow morning, will inform NOC RN. Lines and tubes remain patent and intact.
--- NOTE | 2020-10-10 19:30 | NUR ---
ASSUMED CARE OF PATIENT. REPORT RECEIVED FROM KULWANT OVIEDO. PT REMAINS PRONED, SINCE 0200. ON NIMBEX GTT, PROPOFOL AND FENTANYL GTTS FOR SEDATION AND VENT COMPLIANCE. VENT AC/VC 26, TV 300, PEEP 18, FIO2 100%. SPO2 IN LOW 90'S.PERRL, 1MM. COPIOUS SECREATIONS FROM MOUTH AND NOSE SX. 7.5 ETT AT 26 AT LIP. LS CLEAR UPPER, DIM LOWER. ABD DISTENDED, 90ML RESIDUALS REFED. TF AT GOAL. BT HYPOACTIVE. SCATTERED BRUISES ON ABD, HEMATOMA UPPER R ABD, DARK PURPLE AND FIRM. MEDINA TO GRAVITY, NO BM IN SEVERAL DAYS, WILL REVIEW BOWEL CARE ORDERS. EXT EDEMATOUS, PULSES PALPABLE X 4. BIS ADJUSTED AND READING IN 30'S.
[2020-10-11 04:28] LABS: Hematocrit 32.1 % (33.0-51.0); Mean Corpuscular HGB 29.7 pg (26.0-34.0); Mean Corpuscular HGB Conc 31.2 g/dL (31.5-36.5); Mean Corpuscular Volume 95 fL (80-100); Mean Platelet Volume 10.5 fL (9.1-12.4); NRBC ABSOLUTE 0.03 K/mm3 (0.00-0.02); NRBC Auto 0.3 /100 WBC (0.0-0.2); Platelet Count 218 K/mm3 (150-400); RDW Coefficient Variation 12.9 % (11.7-14.2); RDW Standard Deviation 45.1 fL (35.1-46.3); Red Blood Cell Count 3.37 M/mm3 (3.80-5.20); White Blood Cell Count 9.15 K/mm3 (4.00-11.30)
[2020-10-11 04:57] LABS: Albumin, Blood 1.4 g/dL (3.4-5.0); Anion Gap 1 mmol/L (6-16); Blood Urea Nitrogen 37 mg/dL (8-24); Bun/Creatinine Ratio 63.9 (12.0-20.0); CO2, Blood 32 mmol/L (21-32); Calcium, Blood 7.9 mg/dL (8.5-10.1); Chloride, Blood 107 mmol/L (98-108); Creatinine, Blood 0.58 mg/dL (0.40-1.00); Glomerular Filtration Rate >60 (60-); Glucose, Blood 237 mg/dL (70-99); Phosphorus, Blood 1.8 mg/dL (2.5-4.9); Potassium, Blood 4.7 mmol/L (3.5-5.5); Sodium, Blood 140 mmol/L (136-145)
[2020-10-11 05:41] LABS: BAND PERCENT MAN 1 % (0-8); BASOPHILS ABSOLUTE MAN 0.09 K/mm3 (0.00-0.23); BASOPHILS PERCENT MAN 1 % (0-2); EOSINOPHILS ABSOLUTE MAN 0.27 K/mm3 (0.00-0.68); EOSINOPHILS PERCENT MAN 3 % (0-6); LYMPHOCYTES ABSOLUTE MAN 1.09 K/mm3 (0.84-5.20); LYMPHOCYTES PERCENT MAN 12 % (21-46); METAMYELOCYTE ABSOLUTE MAN 0.09 K/mm3 (0.00-0.00); METAMYELOCYTE PERCENT MAN 1 % (0-0); MONOCYTES ABSOLUTE MAN 0.82 K/mm3 (0.16-1.47); MONOCYTES PERCENT MAN 9 % (4-13); MYELOCYTE ABSOLUTE MAN 0.64 K/mm3 (0.00-0.00); MYELOCYTE PERCENT MAN 7 % (0-0); NEUTROPHILS ABSOLUTE MAN 6.13 K/mm3 (1.96-9.15); SEG NEUTROPHILS PERCENT MAN 66 % (41-73); TOTAL CELLS COUNTED 100
--- NOTE | 2020-10-11 06:35 | NUR ---
SHIFT SUMMARY PT REMAINS PRONED THROUGHOUT THE NIGHT WITH REPOSITIONING OF HEAD AND ARMS Q2. TO4 2/4 TO 3/4 ON NIMBEX AT 1.5MCG. BIS RANGING 20'S TO 50'S WITH PROPOFOL AT 60MCG/KG/MIN, FENTANYL GTT AND ATIVAN PRN. TF AT GOAL WITH NO RESIDUALS. HEMATOMA ON R UPPER ABD UNCHANGED. NO BM YET, MOM GIVEN. WILL CONTINUE TO MONITOR AND REPORT TO ONCOMING SHIFT.
--- NOTE | 2020-10-11 09:00 | NUR ---
DR. HYLTON INFORMED THAT PATIENT HAS HARD HEMATOMA ON R LATERAL SIDE. STATED THAT SHE WOULD LOOK AT.
--- NOTE | 2020-10-11 09:00 | NUR ---
INITIAL ASSESSMENT PATIENT INTUBATED, SEDATED AND ON PARALZYING AGENT. TOF 4/4. PROPOFOL DECREASED FROM 60 TO 50 MCG/ KG/ MINUTE FOR BIS LEVEL IN THE 20S. PATIENT UNRESPONSIVE. PATIENT AFEBRILE. NO SIGNS OF PAIN NOTED AT THIS TIME. AC VENT SETTINGS 26, TV 300, PEEP 18 AND 100% FIO2. LUNGS COARSE AND WHEEZY THROUGHOUT. COPIOUS AMOUNTS OF NASAL SECRETIONS NOTED. PATIENT IN SR, HR IN THE 90S. SBP 120S TO 160S. HARD HEMATOMA NOTED TO R LATERAL SIDE OF ABDOMEN. VHP INFUSING AT GOAL RATE OF 15 MLS/ HOUR; RESIDUAL ZERO THIS AM. LAST DOCUMENTED BM ON 10/02. MEDINA DRAINING DARK YELLOW COLORED URINE. LASIX ORDERED AND GIVEN TODAY. SCATTERED BRUISES TO ABD. FENTANYL AT 50 MCG/ HOUR, NIMBEX AT 1.5 MCG/ KG/ MINUTE, PROPOFOL AT 50 MCG/ KG/ MINUTE, NS TKO X 2. PATIENT RECEIVING 30 MM SODIUM PHOS FOR PHOS OF 1.8 THIS AM. NS AT 100 DC'D. ASSESSMENT LIMITED DUE TO PATIENT BEING IN PRONE POSITION AT THIS TIME. BED LOW. WILL CONTINUE TO MONITOR PATIENT FREQUENTLY THROUGHOUT SHIFT.
--- NOTE | 2020-10-11 10:35 | NUR ---
ENTERED ROOM AND FOUND THAT PATIENT APPEARED TO HAVE HAD AN EPISODE OF EMESIS, LIQUID WAS NOTED AROUND PATIENT'S MOUTH AND ON PILLOW AND LINENS, APPEARED TO BE A GUNTER/PURPLE IN COLOR, THIN LIQUID MIXED WITH MUCOUS-LIKE SECRETIONS. DR. HYLTON NOTIFIED, TOLD TO GIVE ZOFRAN AND ORDERS FOR CXR TO VERIFY TUBE PLACEMENT GIVEN.
--- NOTE | 2020-10-11 13:00 | NUR ---
PATIENT AFEBRILE. HR IN THE 70S. SBP IN THE LOW 100S. TF ON HOLD UNTIL CHEST XR CAN VERIFY OG IS STILL IN CORRECT PLACEMENT. NO OTHER ACUTE CHANGES TO NOTE ON AT THIS TIME. WILL CONTINUE TO MONITOR.
--- NOTE | 2020-10-11 14:31 | NUR ---
BIS IN THE 20S. PROPOFOL DECREASED TO 40 MCG/ KG/ MINUTE.
--- NOTE | 2020-10-11 15:37 | NUR ---
ADVANCED OG TUBE ADDITIONAL [address] HYLTON'S ORDERS.
[2020-10-11 17:03] LABS: Phosphorus, Blood 3.4 mg/dL (2.5-4.9); Potassium, Blood 4.8 mmol/L (3.5-5.5)
--- NOTE | 2020-10-11 18:40 | NUR ---
SHIFT SUMMARY PATIENT REMAINED INTUBATED, SEDATED, AND PARALZYED. PATIENT REMAINS UNRESPONSIVE. PROPOFOL DECREASED FROM 60 TO 40 MCG/ KG/ MINUTE TO KEEP BIS IN THE 40S. TOF 4/4. PATIENT REMAINED AFEBRILE. LUNGS REMAINED COARSE AND WHEEZY. SETTINGS AC 26, TV 300, PEEP 18 AND FIO2 100%. PATIENT CONTINUED TO HAVE COPIOUS NASAL SECRETIONS. PATIENT IN SR, HR 60S TO 90S. SBP LOW 100S TO 160S. TF REMAINED AT GOAL RATE. NO BM THIS SHIFT. HEMATOMA TO R LATERAL ABD OUTLINED IN SKIN MARKER. MEDINA DRAINED ADEQUATE AMOUNT OF DARK YELLOW COLORED URINE. LASIX GIVEN THIS SHIFT. PATIENT REPOSITIONED Q2H. NIMBEX REMAINS AT 1.5 MCG/ KG/ MINUTE. PATIENT RECEIVED 30 MM SODIUM PHOS FOR REPLACEMENT THIS AM. NS AT 100 DC'D THIS SHIFT. PATIENT UNPRONED AROUND 1330. PATIENT HAD COMPLETE BED BATH THIS SHIFT. REPORT WILL BE GIVEN TO ONCOMING EVP BUSINESS DEVELOPMENT NURSE SHORTLY.
--- NOTE | 2020-10-11 19:30 | NUR ---
ASSUMED CARE OF PATIENT. REPORT RECEIVED FROM KULWANT KEENAN. PT WAS UNPRONED THIS AFTERNOON, PLAN TO REPRONE AT 1999. PT IS SEDATED ON PROPOFOL AT 40MCG/KG/MIN AND FENTANYL GTT AT 50MCG/HR. NIMBEX GTT FOR VENT COMPLIANCE WITH TO4 05/18. BIS RUNNING IN 30'S. PERRL 2-3MM. OG IN PLACE WITH TF AT GOAL RATE, 10 RESIDUAL REFED. LS COARSE, DIM IN BASES. ABD DISTENDED WITH HYPOACTIVE BT NOTED. NO BM SINCE 10/03. MEDINA DRAINING TO GRAVITY. EXT EDEMATOUS, PULSES PALPABLE X4. WILL CONTINUE TO MONITOR.
--- NOTE | 2020-10-11 22:58 | NUR ---
PT'S HEAD IS TURNED TO THE L IN PRONED POSITION AND L SIDE TILTED UP. SPO2 DROPS TO 85%. SEDATION INCREASED AND NIMBEX INCREASED TO 2 MCG DUE TO TO4 4/4. FIO2 100%.
[2020-10-12 04:43] LABS: Hematocrit 32.1 % (33.0-51.0); Hemoglobin 10.1 g/dL (11.5-16.0); Mean Corpuscular HGB 29.7 pg (26.0-34.0); Mean Corpuscular HGB Conc 31.5 g/dL (31.5-36.5); Mean Corpuscular Volume 94 fL (80-100); Mean Platelet Volume 10.7 fL (9.1-12.4); NRBC ABSOLUTE 0.11 K/mm3 (0.00-0.02); NRBC Auto 1.1 /100 WBC (0.0-0.2); Platelet Count 213 K/mm3 (150-400); RDW Standard Deviation 44.8 fL (35.1-46.3); White Blood Cell Count 10.22 K/mm3 (4.00-11.30)
[2020-10-12 04:51] LABS: PCO2 Arterial 67.7 mmHg (35-45); pH Blood Arterial 7.31 (7.35-7.45)
[2020-10-12 05:04] LABS: Alanine Aminotransfer (ALT/SGP 32 U/L (12-78); Albumin, Blood 1.5 g/dL (3.4-5.0); Albumin/Globulin Ratio 0.3 (0.8-1.8); Alk Phos 126 U/L (50-136); Anion Gap 0 mmol/L (6-16); Aspartate Aminotrans (AST/SGOT 26 U/L (12-37); Bilirubin, Total 0.3 mg/dL (0.1-1.0); Blood Urea Nitrogen 39 mg/dL (8-24); Bun/Creatinine Ratio 78.8 (12.0-20.0); CO2, Blood 35 mmol/L (21-32); Calcium, Blood 8.5 mg/dL (8.5-10.1); Chloride, Blood 105 mmol/L (98-108); Globulin, Blood 4.5 g/dL (2.2-4.0); Glomerular Filtration Rate >60 (60-); Glucose, Blood 143 mg/dL (70-99); Magnesium, Blood 2.2 mg/dL (1.6-2.4); Potassium, Blood 4.3 mmol/L (3.5-5.5); Sodium, Blood 140 mmol/L (136-145)
[2020-10-12 05:38] LABS: BAND PERCENT MAN 6 % (0-8); BASOPHILS PERCENT MAN 1 % (0-2); EOSINOPHILS PERCENT MAN 3 % (0-6); LYMPHOCYTES ABSOLUTE MAN 1.02 K/mm3 (0.84-5.20); LYMPHOCYTES PERCENT MAN 10 % (21-46); METAMYELOCYTE PERCENT MAN 2 % (0-0); MONOCYTES ABSOLUTE MAN 0.91 K/mm3 (0.16-1.47); MONOCYTES PERCENT MAN 9 % (4-13); MYELOCYTE PERCENT MAN 4 % (0-0); NEUTROPHILS ABSOLUTE MAN 7.25 K/mm3 (1.96-9.15); SEG NEUTROPHILS PERCENT MAN 65 % (41-73); TOTAL CELLS COUNTED 100
--- NOTE | 2020-10-12 06:38 | NUR ---
SHIFT SUMMARY PT REMAINS PRONED THROUGH THE NIGHT. SHE IS SEDATED AND PARALYZED WITH BIS RANGING IN THE 30'S TO 40'S AND TO4 2/4 TO 3/4. PROPOFOL GGTT WITH ATIVAN PRN FOR SEDATION. PT TOLERATES REPOSITIONING POORLY, WITH SPO2 DROPPING TO MID 80'S AND SLOW TO RECOVER. R IJ CENTRAL LINE SITE IS OOZING BLOOD. DRESSING CHANGED WITH TOBI DRESSING PLACED, BUT SITE CONTINUES TO OOZE WHILE PT IS PRONE. HEMATOMA ON UPPER R ABD UNCHANGED. ABD DISTENDED, NO BM YET. WILL CONTINUE TO MONITOR AND REPORT TO ONCOMING SHIFT.
--- NOTE | 2020-10-12 08:30 | NUR ---
INITIAL ASSESSMENT PATIENT INTUBATED, SEDATED, AND PARALZYED. TOF 0/4; NIMBEX DECREASED FROM 2 TO 1.5 MCG/ KG/ MINUTE. BIS IN THE 20S. PROPOFOL DECREASED FROM 50 TO 40 MCG/ KG/ MINUTE. PATIENT UNRESPONSIVE. PATIENT AFEBRILE. PATIENT ON VENT SETTINGS OF 26, TV 300, PEEP 18 AND 100% FIO2. LUNGS COARSE WITH RHONCHI. LLL CLEAR. COPIOUS AMOUNTS OF BLOODY NASAL SECRETIONS NOTED. PATIENT IN SR, HR 90S TO LOW 100S. SBP LOW 100S TO 140S. HEMATOMA ON R LATERAL ABD- OUTLINED IN SKIN MARKER; NO CHANGE SINCE YESTERDAY. TF INFUSING AT GOAL RATE. PRN MOM GIVEN LAST BM DOCUMENTED ON 10/02. MEDINA DRAINING DARK YELLOW URINE. SCATTERED BRUISES NOTED TO ABD. PATIENT BEING REPOSITIONED Q2H. FENTANYL DRIP AT 50 MCG/ HOUR, NS TKO X 2. ASSESSMENT LIMITED PATIENT IS IN PRONE POSITION AT THIS TIME. BED LOW. WILL CONTINUE TO MONITOR PATIENT FREQUENTLY THROUGHOUT SHIFT.
--- NOTE | 2020-10-12 09:00 | NUR ---
DR. MACK INFORMED OF PHOSPHORUS OF 2.0 THIS AM. NO ORDER RECEIEVED.
--- NOTE | 2020-10-12 09:50 | NUR ---
AT [address] MACK DUE TO O2 SATURATIONS IN LOW 80S. PT UNPRONED WITH RT MANAGING AIRWAY, O2 SATURATION DROPPED TO HIGH 60s-LOW 70s, RT STARTED BAGGING PATIENT. DR. MACK CAME TO BEDSIDE. VENT SETTINGS ADJUSTED TO BILEVEL PC. SEE RT NOTE.
--- NOTE | 2020-10-12 10:05 | NUR ---
PATIENT'S , SHEKHAR, CALLED BY DR. MACK AND INFORMED THAT PATIENT NOT DOING WELL. INFORMED THAT PATIENT DESATTED DOWN TO 70S AND HAD TO BE UNPRONED AND BAGGED. SATS HAVE COME UP TO 80S. DR. MACK INFORMED THAT PATIENT HAS NOT BEEN DOING WELL BUT HAS TAKEN A TURN FOR THE WORSE TODAY. PRIMARY NURSE SPOKE TO AFTER. INFORMED THAT HE COULD COME IN TO SEE PATIENT.
--- NOTE | 2020-10-12 12:20 | NUR ---
PATIENT AFEBRILE. HR IN THE 90S. SBP 130S TO 140S. PATIENT ON BILEVEL VENT SETTINGS OF R 30, PS 12 AND 100% FIO2. PATIENT SATS 80S TO 90S. TOF 4/4. BIS IN THE 40S. MINIMAL URINE OUTPUT OF 125 MLS THUS FAR THIS SHIFT. DR. MACK INFORMED. CENTRAL LINE DRESSING CHANGED. WILL CONTINUE TO MONITOR.
--- NOTE | 2020-10-12 16:30 | NUR ---
PATIENT AFEBRILE. HR IN THE 90S. SBP IN THE LOW 100S. PC 30, PI 18, PEEP 18, FIO2 OF 100%. TOF 4/4. BIS IN THE 40S.
--- NOTE | 2020-10-12 18:44 | NUR ---
SHIFT SUMMARY PATIENT REMAINED INTUBATED, SEDATED AND PARALYZED. PROPOFOL CURRENTLY AT 35 MCG/ KG/ MINUTE AND NIMBEX AT 1.5 MCG/ KG/ MINUTE. PATIENT REMAINED UNRESPONSIVE. PATIENT REMAINED AFEBRILE. LUNGS REMAINED COARSE. RT HAD HARD TIME KEEPING SATS 90 AND GREATER THIS SHIFT. VENT SETTINGS CURRENTLY PC 30, PI 20, PEEP 20 AND FIO2 100%. PATIENT SR TO ST, HR 90S TO 120S. SBP 80S TO 180S. HEMATOMA TO R ABD REMAINED UNCHANGED. NO BM THIS SHIFT. PRN MOM AND SUPPOSITORY GIVEN THIS SHIFT. TF REMAINED INFUSING AT GOAL RATE. MEDINA ONLY DRAINED 125 MLS OF DARK YELLOW COLORED URINE. DR. HYLTON AWARE. PATIENT REPOSITIONED Q2H DURING SHIFT. PATIENT UNPRONED AROUND 1000 THIS AM. CENTRAL LINE DRESSING CHANGED THIS SHIFT WAS OOZING BLOOD. PATIENT HAD COMPLETE BED BATH THIS SHIFT. [facility] OPER[facility] NURSE SHORTLY.
--- NOTE | 2020-10-12 19:15 | NUR ---
ASSUMED CARE OF PT. REPORT RECEIVED FROM KULWANT KEENAN. PT WAS TURNED SUPINE AT 1000, THIS MORNING AND THERE IS NO PLAN TO PRONE HER TONIGHT. VENT PC 30/20/20/100%. PT DID NOT TOLERATE TURNS WELL TODAY PER DAYSHIFT. SPO2 IN MID 90'S AT PRESENT. RT TO ADJUST VENT SETTING PER DR MACK. PT IS SEDATED WITH PROPOFOL AND FENTANYL GTTS WITH BIS READING IN 30'S. NIMBEX IS AT 1.5MCG WITH TO4 4/4. LS COARSE THROUGHOUT WITH BLOODY SECRETIONS SX FROM ETT AND NARES. 7.5 ETT AT 26 AT TEETH. ABD DISTENDED, BT ACTIVE, NO BM SINCE 10/03. MEDINA IN PLACE WITH MINIMAL OUTPUT. EXT EDEMATOUS, PULSES PRESENT X4.
--- NOTE | 2020-10-12 21:30 | NUR ---
MEDINA HAS ONLY DRAINED 55 ML URINE SINCE BEGINNING OF SHIFT, AND LINENS ARE SOAKED WITH URINE. MEDINA IS DC'D AND PT HAS LARGE INCONTINENT VOID IN BED. MUCOUSY DISCHARGE ALSO NOTED. NEW TEMP PROBE MEDINA IS PLACED AND PT DRAINS 1000ML URINE IMMEDIATELY. URINE SPECIMEN SENT FOR UA WITH REFLEX CULTURE.
[2020-10-12 22:36] LABS: Source, Urine Catheter
[2020-10-12 22:38] LABS: Bilirubin, Urine Neg (Neg); Blood, Urine 5+ (Neg); Glucose Qualitative, Urine Neg (Neg); Ketones, Urine Neg (Neg); Leukocyte Esterase, Urine 1+ (Neg); Nitrite, Urine Neg (Neg); Protein, Urine 2+ (Neg); Urobilinogen, Urine NORM (Normal)
[2020-10-12 22:41] LABS: Appearance, Urine Hazy (Clear); Color, Urine Yellow (P-Yellow)
[2020-10-12 22:44] LABS: Amorphous Light (0-Heavy); Bacteria Few /hpf; Red Blood Cells, Urine TNTC /hpf (0-2); Squamous Epithelial Cells Few /hpf (Few); White Blood Cells, Urine 0-2 /hpf (0-5)
[2020-10-13 04:31] LABS: Hematocrit 28.3 % (33.0-51.0); Mean Corpuscular HGB 30.6 pg (26.0-34.0); Mean Corpuscular HGB Conc 31.8 g/dL (31.5-36.5); Mean Corpuscular Volume 96 fL (80-100); Mean Platelet Volume 10.6 fL (9.1-12.4); NRBC Auto 1.2 /100 WBC (0.0-0.2); Platelet Count 195 K/mm3 (150-400); RDW Coefficient Variation 13.3 % (11.7-14.2); RDW Standard Deviation 46.5 fL (35.1-46.3); Red Blood Cell Count 2.94 M/mm3 (3.80-5.20); White Blood Cell Count 8.62 K/mm3 (4.00-11.30)
[2020-10-13 04:54] LABS: Albumin, Blood 1.5 g/dL (3.4-5.0); Anion Gap 1 mmol/L (6-16); Blood Urea Nitrogen 59 mg/dL (8-24); Bun/Creatinine Ratio 83.5 (12.0-20.0); CO2, Blood 35 mmol/L (21-32); Calcium, Blood 8.4 mg/dL (8.5-10.1); Chloride, Blood 106 mmol/L (98-108); Creatinine, Blood 0.71 mg/dL (0.40-1.00); Glomerular Filtration Rate >60 (60-); Glucose, Blood 110 mg/dL (70-99); Phosphorus, Blood 2.9 mg/dL (2.5-4.9); Potassium, Blood 4.3 mmol/L (3.5-5.5); Sodium, Blood 142 mmol/L (136-145)
[2020-10-13 05:50] LABS: PCO2 Arterial 65.1 mmHg (35-45); PO2 Arterial 70.4 mmHg (80-100); pH Blood Arterial 7.35 (7.35-7.45)
[2020-10-13 06:22] LABS: BAND PERCENT MAN 2 % (0-8); BASOPHILS PERCENT MAN 0 % (0-2); EOSINOPHILS ABSOLUTE MAN 0.34 K/mm3 (0.00-0.68); EOSINOPHILS PERCENT MAN 4 % (0-6); LYMPHOCYTES ABSOLUTE MAN 1.55 K/mm3 (0.84-5.20); LYMPHOCYTES PERCENT MAN 18 % (21-46); METAMYELOCYTE ABSOLUTE MAN 0.17 K/mm3 (0.00-0.00); METAMYELOCYTE PERCENT MAN 2 % (0-0); MONOCYTES ABSOLUTE MAN 0.51 K/mm3 (0.16-1.47); MONOCYTES PERCENT MAN 6 % (4-13); MYELOCYTE ABSOLUTE MAN 0.34 K/mm3 (0.00-0.00); MYELOCYTE PERCENT MAN 4 % (0-0); NEUTROPHILS ABSOLUTE MAN 5.68 K/mm3 (1.96-9.15); SEG NEUTROPHILS PERCENT MAN 64 % (41-73); TOTAL CELLS COUNTED 100
--- NOTE | 2020-10-13 07:19 | NUR ---
SHIFT SUMMARY PT TOLERATES BATH AND MEDINA CATHETER REPLACEMENT WELL EARLY IN SHIFT, BUT DOES NOT TOLERATE SUBSEQUENT POSITION CHANGES WITH SPO2 DROPPING TO 84%. PT DOES NOT RECOVER SPO2 TO THE 90'S FOR ALMOST AND HOUR. GENTLE TURNS ONLY SINCE. PT IS SEDATED WITH PROPOFOL AND FENTANYL GTTS WITH BIS RANGING IN THE 30'S AND 40'S. TO4 4/4 TO 0/4 WITH NIMBEX GTT TITRATION, NOW ON 2MCG. LS REMAIN COARSE THROUGHOUT. ABD DISTENDED, ACTIVE BT, MUCOUSY SLIGHT BM NOTED. CENTRAL LINE DRESSING CHANGED WITH TOBI PLACED WITH GOOD RESULTS. MEDINA DRAINING ADEQUATE GREENISH URINE WITH SEDIMENT NOTED. WILL REPORT TO ONCOMING SHIFT.
--- NOTE | 2020-10-13 09:04 | NUR ---
Conversation facilitated with the of the principal, Mr Woodrow Ocampo. I gently informed him the his beloved Valerie was decompensating and per the sandblaster paint sprayer would not benefit from ongoing aggressive intervention. I explained to Woodrow that resuscitation at this point would be disproportionate and burdensome. Mr Ocampo expressed understanding, and appreciation for the update and honesty. We have transitioned Valerie to DNR. Thank you for this consult. Waqas Lopez ThD
--- NOTE | 2020-10-13 09:16 | NUR ---
ASSUMED CARE OF PT, REPORT RCV'D FROM KULWANT MANUEL. PT INTUBATED WITH MAX VENT SETTINGS AC 26/300/20/100%. PT IN RESPIRATORY DISTRESS AT 0830, RT AT BEDSIDE MANUALLY BAGGING PT D/T SATS 70%. STAT CHEST XRAY ORDERED, FELICITY JAIN AND TAMERA READ CHEST XRAY. PTS SATS CONTINUE TO DROP BELOW 60%, REPOSITIONED SIDE/SIDE AND HOB WITH NO IMPROVEMENT. PT'S CALLED AND DECISION TO MAKE PT DNR. PT'S CURRENT SATS 43%. LEVOPHED PLACED ON STANDBY, SBP 170, HR 120'S. NIMBEX @ 2 MCG/KG/MIN, PROPOFOL @ 45 MCG/KG/MIN, FENTANYL GTT @ 75 MCG/HR.
--- NOTE | 2020-10-13 12:07 | NUR ---
Patient's son Nikhil arrives in ICU and another family member. I provide emotional support and prayer. Family responds well and shows signs of being comforted.
--- NOTE | 2020-10-13 14:41 | NUR ---
Pt. in bed and the nurses in the room attending to her needs , prayed from the door and howdw4up pt.
--- NOTE | 2020-10-13 18:25 | NUR ---
SHIFT SUMMARY PT REMAINS INTUBATED, SEDATED AND PARALYZED. VENT SETTINGS MAXXED OUT AT 26/300/20/100% WITH SATS 50-72%. PROPOFOL @ 50 MCG/KG/MIN, NIMBEX @ 2 MCG/KG/MIN, FENTANYL GTT @ 50 MCG/HR. PT HYPOTENSIVE. PT'S FAMILY UPDATED AND AT BEDSIDE. LONG DISCUSSIONS WITH PT'S DAUGHTER AND BY THIS NURSE AND PALLIATIVE/SPIRITUAL CARE REGARDING PT'S PROGNOSIS. PT'S FAMILY DOES NOT SEEM TO FULLY GRASP SEVERITY OF PT'S PROGNOSIS. 950 ML URINARY OUTPUT. PT HAD INCONTINENT BM THIS EVENING. WILL REPORT TO ONCOMING NURSE.
--- NOTE | 2020-10-13 19:07 | NUR ---
PT TIME OF 1904. FINAL DISCHARGE CALLED.
--- NOTE | 2020-10-13 21:46 | NUR ---
SPOKE W PT SHEKHAR, CONFIRMED THAT PT PHONE AND [facility] W DEBIT CARD WOULD BE GOING TO [facility].
== END 2020-10-13 19:05 | DRG 207 ==
LOC: ER 04:37 → MEDS 05:53 → ICUE 05:53 → PCU 05:53 → MEDS 06:36 → PCU 10-02 19:18 → ICUE 10-06 09:45
PROVIDERS: Family Medicine; Hospitalist; Internal Medicine; Internal Medicine Critical Care Medicine; Student in an Organized Health Care Education/Training Program; ADMIT Internal Medicine
PROC: 8E0ZXY6 Isolation (ICD-10-PCS; 2020-09-28)
PROC: XW033E5 Introduction of Remdesivir Anti-infective into Peripheral Vein, Percutaneous Approach, New Technology Group 5 (ICD-10-PCS; 2020-09-28)
PROC: 3E0333Z Introduction of Anti-inflammatory into Peripheral Vein, Percutaneous Approach (ICD-10-PCS; 2020-09-28)
PROC: 5A09357 Assistance with Respiratory Ventilation, Less than 24 Consecutive Hours, Continuous Positive Airway Pressure (ICD-10-PCS; 2020-10-05)
PROC: 5A1955Z Respiratory Ventilation, Greater than 96 Consecutive Hours (ICD-10-PCS; principal; 2020-10-06)
PROC: 0BH17EZ Insertion of Endotracheal Airway into Trachea, Via Natural or Artificial Opening (ICD-10-PCS; 2020-10-06)
PROC: 02HV33Z Insertion of Infusion Device into Superior Vena Cava, Percutaneous Approach (ICD-10-PCS; 2020-10-06)
PROC: 3E043XZ Introduction of Vasopressor into Central Vein, Percutaneous Approach (ICD-10-PCS; 2020-10-06)
DX: U07.1 COVID-19 (principal); J96.01 Acute respiratory failure with hypoxia; J12.82 Pneumonia due to coronavirus disease 2019; E87.1 Hypo-osmolality and hyponatremia; Z68.41 Body mass index [BMI] 40.0-44.9, adult; Z66 Do not resuscitate; E87.6 Hypokalemia; R79.1 Abnormal coagulation profile; E83.39 Other disorders of phosphorus metabolism; E66.01 Morbid (severe) obesity due to excess calories; I95.9 Hypotension, unspecified; E11.9 Type 2 diabetes mellitus without complications; I10 Essential (primary) hypertension; Z79.84 Long term (current) use of oral hypoglycemic drugs; Z79.899 Other long term (current) drug therapy
CPT/HCPCS: 31500; 36415; 36556; 36600; 51702; 71045; 71260; 80048; 80053; 80069; 80202; 81001; 82803; 82947; 83735; 83880; 84100; 84132; 84145; 84443; 85025; 85027; 85379; 86140; 87070; 87086; 87147; 87205; 93005; 93010; 94002; 94003; 94660; 94762; 96374; 96375; 99285-25; A9270; C1751; C9113; J0330; J0610; J0692; J1100; J1650; J1885; J1940; J2060; J2405; J2704; J3010; J3370; J3480; J7030; J7040; J7050; J7060; Q9967